=== PATIENT | male | born 1990 | race African-American/Black ===

== ENCOUNTER 2021-11-27 03:44 | Emergency (ER) | payer OTHER ==
[~2021-11-27] VITALS: Ht 167.6 cm; Wt 70.3 kg
--- NOTE | 2021-11-27 03:45 | NUR ---
PRESNTED TO THE ER FOR C/O SI WITH NO SPECIFIC PLAN. PATIENT IS REQUESTING MEDICAL CLEARANCE AND VOLUNTARY PSYCH ADMISSION. PT AMBULATORY TO THE BATHROOM WITH STEADY GAITS. URINE SAMPLE COLLECTED AND COVID SWAB OBTAINED. PT WAS PLACED ON SI PRECAUTION AND SECRITY WAS CALLED TO WAND THE PT, BELONGINGS WERE TAKEN AWAY. NEEDS MET. WILL CONT TO MONITOR
[2021-11-27 04:07] LABS: BASOPHILS # (AUTO) 0.1 K/uL (0.0-0.2); BASOPHILS % (AUTO) 1.1 % (0.0-2.0); EOSINOPHILS % (AUTO) 3.1 % (0.0-6.0); HEMATOCRIT 40 % (39-51); HEMOGLOBIN 13.4 g/dL (13.5-17.5); LYMPHOCYTES # (AUTO) 2.9 K/uL (0.8-4.8); LYMPHOCYTES % (AUTO) 42.2 % (20.0-44.0); MEAN CORPUSCULAR HGB CONC 34 g/dl (31.0-36.0); MEAN CORPUSCULAR VOLUME 96 fL (80-96); MONOCYTES # (AUTO) 0.5 K/uL (0.1-1.30); MONOCYTES % (AUTO) 7.9 % (2.0-12.0); NEUTROPHILS # (AUTO) 3.2 K/uL (1.8-8.9); NEUTROPHILS % (AUTO) 45.7 % (43.0-81.0); PLATELET COUNT (AUTO) 303 K/uL (150-450); RED BLOOD CELL COUNT(AUTO) 4.15 MIL/uL (4.5-6.0); WHITE BLOOD COUNT (AUTO) 6.9 K/uL (4.3-11.0)
[2021-11-27 04:08] LABS: BILIRUBIN,URINE NEGATIVE (NEGATIVE); COLOR,URINE YELLOW (YELLOW); LEUKOCYTE ESTERASE ,URINE NEGATIVE (NEGATIVE); NITRITE, URINE NEGATIVE (NEGATIVE); PH,URINE 5.5 (5.0-8.0); PROTEIN,URINE NEGATIVE (NEGATIVE); UGLUCOSE NEGATIVE (NEGATIVE); UROBILINOGEN,URINE 0.2 EU/dL (0.2)
[2021-11-27 04:17] LABS: ALANINE AMINOTRANSFERASE 30 U/L (12-78); ALCOHOL, BLOOD < 3 mg/dL (0-0); ALKALINE PHOSPHATASE 66 U/L (46-116); ASPARTATE AMINOTRANSFERASE 31 U/L (15-37); BILIRUBIN,DIRECT 0.1 mg/dL (0.0-0.2); BILIRUBIN,TOTAL 0.3 mg/dL (0.2-1.0); CALCIUM, SERUM 9.3 mg/dL (8.5-10.1); CARBON DIOXIDE 24 mmol/L (21-32); CHLORIDE 101 mmol/L (98-107); CREATININE 1.2 mg/dL (0.6-1.3); GLUCOSE 91 mg/dL (74-106); POTASSIUM 4.2 mmol/L (3.5-5.1); SODIUM SERUM 138 mmol/L (136-145); TOTAL PROTEIN, SERUM 7.6 g/dL (6.4-8.2); UREA NITROGEN, BLOOD 14 mg/dL (7-18)
--- NOTE | 2021-11-27 08:53 | NUR ---
BHAKTI faxed clinicals to [facility] [[address] [place] [id number] FAX:[phone]] for voluntary psychiatric treatment.
[2021-11-27 09:59] VITALS: BP 121/74
--- NOTE | 2021-11-27 10:37 | NUR ---
[employer] [employer] CALLED WITH PT ACCEPTANCE INFO UNDER THE CRAE OF DR. PHILLIPS NUMBER FOR REPORT [phone]
--- NOTE | 2021-11-27 10:50 | NUR ---
REPORT GIVEN TO POPEYE FOR HELENA
--- NOTE | 2021-11-27 10:51 | NUR ---
PT TRANSPORT TO [facility]AC[facility] IN STABLE CONDITON
== END 2021-11-27 10:52 ==
LOC: ER 03:44
DX: R45.851 Suicidal ideations (principal); Z59.00 Homelessness unspecified; F32.A Depression, unspecified; F41.9 Anxiety disorder, unspecified; Z20.822 Contact with and (suspected) exposure to COVID-19
CPT/HCPCS: 36415; 80048; 80076; 80143; 80307; 80320; 81003; 85025; 87426; 99285; C9803; G0480